=== PATIENT | male | born 1935 | race Caucasian/White ===

== ENCOUNTER → 2020-07-27 | Outpatient (CLI) | payer MEDICARE ==
--- NOTE | 2020-07-27 16:51 | CARDNUC ---
[place] [address] CARDIAC NUCLEAR IMAGING REPORT Name: FARSHAD INIGUEZ Room: [facility]#: [id number] Admission: 07/27/20 Attend Phys: Loida Myers DO Discharge: Date of : 37 Date of Service: 07/27/20 1651 Report #: [id number] THIS REPORT FOR: cc: Loida Myers Maggie M. DO Liston, Michael J. MD [facility] ~ APPROVED REPORT Study performed: 07/27/2020 12:26:27 Exam: Nuclear Stress Test Indication: Dyspnea Patient Location: Out-Patient Stress Tech: Dixie Casas Stress Nurse: Ivett Zapata Ht: 5 ft 10 in Wt: 201 lbs BSA: 2.09 m2 BMI: 28.83 Medical History Medical History: Dyspnea, SAE, nephrolithiasis, hypothyroidism, renal artery aneurysm, fatigue, DM II - insulin, HTN, HLD, vision impairment bilaterally, lower back pain, total knee replacement. Medications: ASA 81 Mg, Fosinopril. Allergies: No known drug allergies Cardiac Risk Factors: Age, Diabetes (insulin), HTN, Hyperlipidemia, SOB. Previous Cardiac Procedures: None Pretest Chest Pain Characteristics: No chest pain Exercise History: Indeterminate Physical Disabilities: Fatigue, back pain, vision impairment, knee pain, slow shuffled gait. Meds Held (24 hrs): None Stress Test Details Stress Test: Pharmacologic stress testing performed using 0.4 mg of regadenoson per 5 mL given IV over 10 seconds. Reason for pharmacologic stress test: Fatigue, back pain, vision impairment, knee pain, slow shuffled gait.. HR Resting HR: 78 bpm Max Heart Rate (APMHR): 137 bpm Max HR Achieved: 110 bpm Target HR (85% APMHR): 116 [place] [address] CARDIAC NUCLEAR IMAGING REPORT Name: FARSHAD INIGUEZ Room: [facility]#: [id number] Admission: 07/27/20 Attend Phys: Loida Myers DO Discharge: Date of : 37 Date of Service: 07/27/20 1651 Report #: [id number] % of APMHR: 80 Recovery HR: 96 bpm BP Resting BP: 169/77 mmHg Max BP: 154/64 mmHg ECG Resting ECG: Sinus Rhythm Stress ECG: Sinus Tachycardia ST Change: None Arrhythmia: VPC's, APC's Recovery ECG: Sinus Rhythm Recovery ST Change: None Recovery Arrhythmia: VPC's, APC's Clinical Reason for Termination: Completed protocol Stress Symptoms: Lightheaded. Exercise duration: 00 min 00 sec Exercise capacity: 1.00 METs The patient tolerated Lexiscan infusion without cardiac symptoms. Nurse Comments An 84 year old male presented for a sitting Lexiscan r/t dyspnea. Test well tolerated. Recovery unremarkable. Patient was stable and stated he felt good when escorted via wheelchair to Nuclear Medicine for imaging. Stress ECG Conclusion The baseline twelve-lead EKG shows sinus rhythm without significant ST segment or T wave abnormality. EKGs obtained during and post Lexiscan infusion show sinus rhythm and sinus tachycardia with premature atrial and premature ventricular contractions. There were no significant ST segment or T wave changes when compared to baseline. NM EXAM: Myocardial Perfusion REST/STRESS Resting Data Rest SPECT myocardial perfusion imaging was performed in supine position 30 minutes following the intravenous injection of 9.5 mCi of Tc-99m Sestamibi. Time of rest injection: 10:50 The images were gated to evaluate regional wall motion [place] [address] CARDIAC NUCLEAR IMAGING REPORT Name: HIRAFARSHAD Carleen [id number] Admission: 07/27/20 Attend Phys: Loida Myers DO Discharge: Date of : 37 Date of Service: 07/27/20 1651 Report #: [id number] left ventricular ejection fraction. Administration Route: IV Administration Site: Right AC Pharmacologic Stress Pharmacologic stress test was performed by injecting Regadenoson 0.4 mg IV push followed by the intravenous injection of 29.1 mCi of Tc-99m Sestamibi. Time of stress injection: 12:35 Administration Route: IV Administration Site: Right AC Heart Rate at time of stress injection: 96 bpm. Gated Stress SPECT was performed 45 minutes after stress injection. The images were gated to evaluate regional wall motion and calculate left ventricular ejection fraction. Study Quality Study: Good Artifact: Mild Diaphragmatic artifact Study Data At rest, the left ventricular ejection fraction was 78%.. Post stress, the left ventricular ejection was 83%.. TID = 0.99. Perfusion Perfusion images obtained in the supine position at rest and post Lexiscan stress show mild photopenia in the basal portion of the inferior wall. There were no reversible defects identified. Wall Motion Normal left ventricular wall motion. Nuclear Conclusion ECG Findings: negative for ischemia Clinical Findings: negative for ischemia Nuclear Findings: negative for ischemia Exercise Capacity: not assessed Left Ventricular Function: normal Risk Study: low Perfusion images show no reversible defects. There is photopenia of the basal portion of the inferior wall that appears to move normally on gated study suggesting diaphragmatic attenuation artifact. Global LV systolic function is normal on gated studies. [place] [address] CARDIAC NUCLEAR IMAGING REPORT Name: FARSHAD INIGUEZ Room: [facility] Chirag#: [id number] Admission: 07/27/20 Attend Phys: Loida Myers DO Discharge: Date of : 37 Date of Service: 07/27/20 1651 Report #: [id number] <Conclusion> The baseline twelve-lead EKG shows sinus rhythm without significant ST segment or T wave abnormality. EKGs obtained during and post Lexiscan infusion show sinus rhythm and sinus tachycardia with premature atrial and premature ventricular contractions. There were no significant ST segment or T wave changes when compared to baseline. <ELECTRONICALLY SIGNED> By: Vincenzo Damico MD, FACC 07/27/201650 50 50 Vincenzo Damico MD, FACC /INF
== END ==
LOC: M.NUC 07-18 14:47
PROVIDERS: ATTEND Family Medicine
DX: R06.02 Shortness of breath (principal); E11.9 Type 2 diabetes mellitus without complications; Z79.4 Long term (current) use of insulin; E78.00 Pure hypercholesterolemia, unspecified